=== PATIENT | female | born 1970 | race American Indian/Alaskan Native ===

== ENCOUNTER 2019-05-18 12:22 | Emergency (ER) | payer MEDICARE ==
[2019-05-18 16:58] VITALS: BP 154/99
== END 2019-05-18 17:05 | disposition home or self-care (01) ==
LOC: ED 12:22
DX: J98.4 Other disorders of lung (principal); Z98.890 Other specified postprocedural states; F17.200 Nicotine dependence, unspecified, uncomplicated; Z79.1 Long term (current) use of non-steroidal anti-inflammatories (NSAID); Z79.899 Other long term (current) drug therapy
CPT/HCPCS: 36415; 71045; 71275; 80048; 84484; 85025; 93005; 93010; 96374; 99285; J1885; Q9967